=== PATIENT | male | born 1970 | race Two or more races ===

== ENCOUNTER 2020-12-02 21:21 | Inpatient (IN) | payer OTHER ==
[~2020-12-02] VITALS: Ht 177.8 cm; Wt 79.8 kg
--- NOTE | 2020-12-02 21:28 | NUR ---
SE RECIBE PACIENTE ALERTA, ORIENTADO X 3 ESFERAS REFIERE DOLOR ABDOMINAL EN CUADRANTE SUPERIOR DERECHO, REFIERE SENTIR PUNZADAS DOLOR COMENZO HOY EN LA TARDE SE ESTIMAN S/V SE UBICA EN AREA DE OBSERVACION.
--- NOTE | 2020-12-02 22:22 | NUR ---
SE ORIENTA PTE SOBRE TX MEDICO EL CUAL REFIERE ENTENDER.SE LE EXTRAEN MUESTRAS BAJO MEDIDAS ASEPTICAS.SE CANALIZA Y SE COLOCA FLUIDOS DE MANTENIMIENTO BAJANDO SIN DIFICULTAD.SE ENTREGA CONTRASTE Y SE ORIENTA,SE NOTIFICA ESTUDIO.
== END 2020-12-04 14:48 | disposition home or self-care (01) | DRG 343 ==
LOC: ER 21:21 → SURG 12-03 06:01 → SEC-K 12-03 06:01 → O/R 12-03 07:57 → SURG 12-03 10:26
PROVIDERS: ADMIT Surgery; ATTEND Surgery
PROC: 0DTJ4ZZ Resection of Appendix, Percutaneous Endoscopic Approach (ICD-10-PCS; principal; 2020-12-03 07:00)
DX: K35.890 Other acute appendicitis without perforation or gangrene (principal); Z20.822 Contact with and (suspected) exposure to COVID-19